=== PATIENT | female | born 1965 | race American Indian/Alaskan Native ===

== ENCOUNTER 2020-11-03 12:33 | Emergency (ER) | payer OTHER ==
[2020-11-03 19:49] LABS: Absolute Lymphocytes (CBC) 1.7 K/uL (0.7-4.9); Basophils % 0.5 % (0-1.3); Hematocrit 29.6 % (36.0-45.0); Lymphocytes % 22.7 % (15.3-44.8); MPV 7.9 fL (7.6-11.3); RBC Red Blood Cell Count 3.15 M/uL (3.86-4.86)
[2020-11-03 19:55] LABS: Urine Blood 3+ (NEG); Urine Glucose NEGATIVE (NEG); Urine Protein NEGATIVE (NEG); Urine pH 5.5 (5.0-7.0)
[2020-11-03 19:56] LABS: Potassium 3.5 mmol/L (3.5-5.1)
[2020-11-03 21:30] LABS: Ferritin 22.7 ng/mL (8-388)
--- NOTE | 2020-11-03 21:53 | EDPHYS ---
Physician Documentation [facility] Name: Manpreet Rouse Age: 55 yrs Sex: Female : 1965 Arrival Date: 11/03/2020 Time: 12:35 Bed 14 Private MD: ED Physician Joesph Mayer HPI: 11/03 18:02 This 55 yrs old Other Female presents to ER via Ambulatory with complaints of Weakness, pm1 Dizziness, Vaginal Bleeding. 18:02 The patient presents with vaginal bleeding that is heavy. Onset: The symptoms/episode pm1 began/occurred heavy vaginal bleeding onset mid September for 10 days that resolved. 2-3 days without bleeding and then her current bleeding continued until today. Current bleeding ongoing for 3 days. Modifying factors: The symptoms are alleviated by nothing, the symptoms are aggravated by nothing. Associated signs and symptoms: Pertinent positives: generalized weakness, dizziness. Severity of symptoms: in the emergency department the symptoms are unchanged. The patient's method of control includes recently started on control medications called in from quality rep. Has appointment with quality rep on . 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 - Social history:: Smoking status: Patient denies any tobacco usage or history of. ROS: 18:02 Positive for vaginal bleeding, Negative for burning with urination. pm1 18:02 Constitutional: Negative for fever, chills, and weight loss, Cardiovascular: Negative for chest pain, palpitations, and edema, Respiratory: Negative for shortness of breath, cough, wheezing, and pleuritic chest pain, Abdomen/GI: Negative for abdominal pain, nausea, vomiting, diarrhea, and constipation, Back: Negative for injury and pain, MS/Extremity: Negative for injury and deformity, Skin: Negative for injury, rash, and discoloration. 18:02 Neuro: Positive for dizziness, generalized weakness. Exam: 18:02 Constitutional: This is a well developed, well nourished patient who is awake, alert, pm1 and in no acute distress. Head/Face: Normocephalic, atraumatic. 18:02 Back: No spinal tenderness. No costovertebral tenderness. Full range of motion. Skin: Warm, dry with normal turgor. Normal color with no rashes, no lesions, and no evidence of cellulitis. MS/ Extremity: Pulses equal, no cyanosis. Neurovascular intact. Full, normal range of motion. 18:02 Cardiovascular: Rate: normal, Rhythm: regular, Pulses: no pulse deficits are appreciated, Edema: is not appreciated. 18:02 Respiratory: Exam negative for acute changes, respiratory distress, shortness of breath. 18:02 Neuro: Exam negative for acute changes, Orientation: is normal, Mentation: is normal, Motor: is normal, moves all fours. Vital Signs: 13:08 BP 119 / 73; Pulse 67; Resp 16; Temp 98.8(TE); Pulse Ox 100% on R/A; Weight 80.29 kg; sv Height 5 ft. 4 in. (162.56 cm); Pain 0/10; 19:50 BP 109 / 64 Supine; Pulse 57; Resp 18; Pulse Ox 100% on R/A; zb 19:53 BP 116 / 68 Sitting; Pulse 59; zb 19:55 BP 119 / 80 Standing; Pulse 78; zb 20:30 BP 104 / 75; Pulse 73; Resp 18; Pulse Ox 97% on R/A; zb 21:44 BP 110 / 65; Pulse 59; Resp 18; Pulse Ox 100% on R/A; zb 13:08 Body Mass Index 30.38 (80.29 kg, 162.56 cm) sv MDM: 18:02 Patient medically screened. pm1 18:14 Data reviewed: vital signs. Data interpreted: Pulse oximetry: on room air is 100 %. pm1 Interpretation: normal. 21:52 Counseling: I had a detailed discussion with the patient and/or guardian regarding: the pm1 historical points, exam findings, and any diagnostic results supporting the discharge/admit diagnosis, lab results, radiology results, the need for outpatient follow up, for definitive care, an OB/Gyne specialist, to return to the emergency department if symptoms worsen or persist or if there are any questions or concerns that arise at home. 11/03 17:59 Order name: Abo/rh Typing; Complete Time: 01:10 snw 11/03 17:59 Order name: Basic Metabolic Panel; Complete Time: 21:33 snw 11/03 17:59 Order name: CBC with Diff; Complete Time: 20:05 snw 11/03 18:15 Order name: Iron Level pm1 11/03 13:30 Order name: Orthostatics; Complete Time: 19:57 snw 11/03 17:59 Order name: IV Saline Lock; Complete Time: 19:32 snw 11/03 17:59 Order name: Labs collected and sent; Complete Time: 19:32 snw 11/03 18:14 Order name: EKG; Complete Time: 18:15 pm1 11/03 19:49 Order name: Urine --Ancillary (enter results); Complete Time: 20:05 tt3 11/03 19:49 Order name: Urine Dipstick--Ancillary (enter results); Complete Time: 20:05 tt3 11/03 21:17 Order name: Transferrin Sat/Iron Binding; Complete Time: 21:33 EDMS 11/03 21:17 Order name: Ferritin; Complete Time: 21:33 EDMS 11/03 17:59 Order name: NPO; Complete Time: 19:32 snw 11/03 17:59 Order name: Urine Dipstick-Ancillary (obtain specimen); Complete Time: 19:32 snw 11/03 18:14 Order name: EKG - Nurse/Tech; Complete Time: 19:20 pm1 11/03 18:18 Order name: Urine Test (obtain specimen); Complete Time: 19:49 pm1 Administered Medications: No medications were administered Disposition: 11/03/20 21:52 Discharged to Home. Impression: Abnormal uterine and vaginal bleeding, unspecified. - Condition is Stable. - Discharge Instructions: Abnormal Uterine Bleeding. - Medication Reconciliation Form, Thank You Letter, Antibiotic Education, Prescription Opioid Use form. - Follow up: Emergency Department; When: As needed; Reason: Worsening of condition. Follow up: Private Physician; When: 2 - 3 days; Reason: Recheck today's complaints, Continuance of care, Re-evaluation by your physician. - Problem is new. - Symptoms have improved. Addendum: 11/05/2020 06:50 Co-signature as Attending Physician, Joesph Mayer MD I agree with the assessment and c simpson plan of care. Signatures: [facility] Hiram, Patti, RN Joesph Givens MD MD cha Waters, Shelly, UNDERWRITING INTERN-C UNDERWRITING INTERN-Csnw Saad Persaud, HALF SECTION IRONER HALF SECTION IRONER pm1 Danika Merida RN RN zb Corrections: (The following items were deleted from the chart) 11/03 21:31 18:17 FERRITIN+C.LAB.BRZ ordered. EDMS EDMS 21:31 18:17 TRANSFERRIN SAT/IRON BINDING+C.LAB.BRZ ordered. EDSC EDMS 22:08 21:52 11/03/2020 21:52 Discharged to Home. Impression: Abnormal uterine and vaginal zb bleeding, unspecified. Condition is Stable. Forms are Medication Reconciliation Form, Thank You Letter, Antibiotic Education, Prescription Opioid Use. Follow up: Emergency Department; When: As needed; Reason: Worsening of condition. Follow up: Private Physician; When: 2 - 3 days; Reason: Recheck today's complaints, Continuance of care, Re-evaluation by your physician. Problem is new. Symptoms have improved. pm1
--- NOTE | 2020-11-03 21:53 | ER ---
Nurse's Notes [facility] Name: Manpreet Rouse Age: 55 yrs Sex: Female : 1965 Arrival Date: 11/03/2020 Time: 12:35 Bed 14 Private MD: Diagnosis: Abnormal uterine and vaginal bleeding, unspecified Presentation: 11/03 13:06 Chief complaint: Patient states: heavy vaginal bleeding since 10/30/20, reports that sv she has been having heavy vaginal bleeding. Her PCP sent her here to get checked for anemia because 2 weeks ago she had a HGB of 7. Pt now reports dizziness as well. Coronavirus screen: Client denies travel out of the [place] in the last 14 days. At this time, the client does not indicate any symptoms associated with coronavirus-19. Ebola Screen: No symptoms or risks identified at this time. 13:06 Method Of Arrival: Ambulatory sv 13:07 Risk Assessment: Do you want to hurt yourself or someone else? Patient reports no sv desire to harm self or others. Onset of symptoms was November 03, 2020. 13:07 Acuity: LUIS F 3 sv 13:08 Initial Sepsis Screen: Does the patient meet any 2 criteria? No. Patient's initial sv sepsis screen is negative. Does the patient have a suspected source of infection? No. Patient's initial sepsis screen is negative. Triage Assessment: 13:10 General: Appears in no apparent distress. comfortable, Behavior is calm, cooperative, sv appropriate for age. Neuro: Level of Consciousness is awake, alert, obeys commands, Oriented to person, place, time, situation, Gait is steady. Neuro: Reports dizziness. Respiratory: Respiratory effort is even, unlabored. 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 - Social history:: Smoking status: Patient denies any tobacco usage or history of. Screenin:00 Abuse screen: Denies threats or abuse. Denies injuries from another. Nutritional zb screening: No deficits noted. Tuberculosis screening: No symptoms or risk factors identified. Fall Risk None identified. Assessment: 18:00 General: Appears in no apparent distress. uncomfortable, Behavior is calm, cooperative, zb appropriate for age, Reports fatigue for. Pain: Denies pain. Neuro: Level of Consciousness is awake, alert, obeys commands, Oriented to person, place, time, Reports dizziness. Cardiovascular: Reports lightheadedness, Patient's skin is warm and dry. Respiratory: Airway is patent Respiratory effort is even, unlabored, Respiratory pattern is regular, symmetrical. GI: Abdomen is flat, distended. : Reports vaginal bleeding that is. EENT: No signs and/or symptoms were reported regarding the EENT system. Derm: Skin is intact, is healthy with good turgor, Skin is pale. Musculoskeletal: Circulation, motion, and sensation intact. Capillary refill < 3 seconds, in bilateral fingers. Range of motion: intact in all extremities. 19:00 Reassessment: Patient appears in no apparent distress at this time. Patient and/or zb family updated on plan of care and expected duration. Pain level reassessed. Patient is alert, oriented x 3, equal unlabored respirations, skin warm/dry/pink. family at bedside, pt given warm blanket. no c/o at this time. 20:00 Reassessment: Patient appears in no apparent distress at this time. Patient and/or zb family updated on plan of care and expected duration. Pain level reassessed. Patient is alert, oriented x 3, equal unlabored respirations, skin warm/dry/pink. informed pt that she was npo, discussed plan of care. 20:36 Reassessment: Patient appears in no apparent distress at this time. Patient and/or zb family updated on plan of care and expected duration. Pain level reassessed. Patient is alert, oriented x 3, equal unlabored respirations, skin warm/dry/pink. ECP at bedside discussing POC. 21:43 Reassessment: Patient appears in no apparent distress at this time. Patient and/or zb family updated on plan of care and expected duration. Pain level reassessed. Patient is alert, oriented x 3, equal unlabored respirations, skin warm/dry/pink. ECP at bedside discussing care and lab results w/ patient. no c/o of pain at this time. 22:07 Reassessment: d/c instruction given. gait steady and even. pt had no further questions. zb Vital Signs: 13:08 BP 119 / 73; Pulse 67; Resp 16; Temp 98.8(TE); Pulse Ox 100% on R/A; Weight 80.29 kg; sv Height 5 ft. 4 in. (162.56 cm); Pain 0/10; 19:50 BP 109 / 64 Supine; Pulse 57; Resp 18; Pulse Ox 100% on R/A; zb 19:53 BP 116 / 68 Sitting; Pulse 59; zb 19:55 BP 119 / 80 Standing; Pulse 78; zb 20:30 BP 104 / 75; Pulse 73; Resp 18; Pulse Ox 97% on R/A; zb 21:44 BP 110 / 65; Pulse 59; Resp 18; Pulse Ox 100% on R/A; zb 13:08 Body Mass Index 30.38 (80.29 kg, 162.56 cm) sv ED Course: 12:35 Patient arrived in ED. rg4 13:06 Arm band placed on. sv 13:08 Triage completed. sv 18:02 Saad Persaud NP is PHCP. pm1 18:02 Joesph Mayer MD is Attending Physician. pm1 18:03 Danika Merida RN is Primary Nurse. zb 18:50 Inserted saline lock: 20 gauge in right antecubital area, using aseptic technique. zb 19:45 Patient has correct armband on for positive identification. Pulse ox on. NIBP on. Door zb closed. Noise minimized. 22:07 No provider procedures requiring assistance completed. IV discontinued, intact, zb bleeding controlled, No redness/swelling at site. Pressure dressing applied. Administered Medications: No medications were administered Outcome: 21:52 Discharge ordered by . pm1 22:07 Discharged to home ambulatory. zb 22:07 Condition: stable 22:07 Discharge instructions given to patient, Instructed on discharge instructions, follow up and referral plans. Demonstrated understanding of instructions, follow-up care. 22:08 Patient left the ED. zb Signatures: Patti Gandhi RN RN Saad Persaud NP STATION INSPECTOR pm1 Paradise Clemons rg4 Danika Merida RN RN zb Corrections: (The following items were deleted from the chart) 13:11 13:08 Pulse 67bpm; Resp 16bpm; Pulse Ox 100%; Temp 98.8F; 80.29 kg; Height 5 ft. 4 in.; sv BMI: 30.3; sv 20:01 18:00 General: Appears in no apparent distress. uncomfortable, Behavior is calm, zb cooperative, appropriate for age, Reports fatigue for zb 20:01 18:00 Neuro: Level of Consciousness is awake, alert, obeys commands, Oriented to zb person, place, time, zb
[2020-11-03 22:50] VITALS: TEMP 98.8
[2020-11-03 22:56] VITALS: BP 110/65; O2SAT 100
--- NOTE | 2020-11-04 08:18 | EKG ---
Test Date: 2020-11-03 Test Time: 19:09:17 Caseworker: BELLA MEASUREMENT RESULTS: Intervals: Rate: 56 DE: 172 QRSD: 68 QT: 406 QTc: 391 [place]: P: 65 DE: 172 QRS: 73 T: 53 INTERPRETIVE STATEMENTS: Sinus bradycardia Otherwise normal ECG No previous ECG available for comparison Electronically Signed On 11-04-20 08:17:25 RAIL CAR REPAIRMAN by Jorje Craig
== END 2020-11-03 22:08 | disposition home or self-care (01) ==
LOC: ER 12:33
DX: N93.9 Abnormal uterine and vaginal bleeding, unspecified (principal); Z88.3 Allergy status to other anti-infective agents; Z91.040 Latex allergy status; Z91.048 Other nonmedicinal substance allergy status
CPT/HCPCS: 36415; 80048; 81003; 81025; 82728; 83540; 84466; 85025; 86900; 86901; 93005; 99283